=== PATIENT | male | born 1995 | race Caucasian/White ===

== ENCOUNTER 2021-08-02 14:32 | Outpatient (REF) | payer BC, SELFPAY ==
[2021-08-02 15:24] LABS: Influenza A PCR NEGATIVE (Negative); Influenza B PCR NEGATIVE (Negative); Resp Syncy Virus RNA Qual PCR NEGATIVE (Negative); SARS COV2 PCR INHOUSE NEGATIVE (Negative)
== END 2021-08-02 14:33 | disposition home or self-care (01) ==
LOC: HO.LNP 14:32
PROVIDERS: Visit Provider Internal Medicine
DX: Z20.822 Contact with and (suspected) exposure to COVID-19 (principal); H92.02 Otalgia, left ear; R09.82 Postnasal drip; R68.83 Chills (without fever); R51.9 Headache, unspecified
CPT/HCPCS: 0241U

== ENCOUNTER 2023-05-16 09:26 | Outpatient (AMB) | payer OTHER, SELFPAY ==
--- NOTE | 2023-05-16 09:33 | A.OFFVIS_ITS ---
Intake Intake Visit Reasons: Chronic prostatitis Intake Note: NEW Patient presents today to established treatment for Chronic Prostatitis: Meds- None Allergies to Antibiotic- No Known Allergies Blood Thinner- None Family History of Prostate Cancer Building Services Technician Required: No Accompanied by: Self / Same As Patient Allergies No Known Allergies Allergy (Verified 05/16/23 09:48) HPI HPI Comments History of Present Illness Details Isai is a 27 male who is here for evaluation with a history of prostatitis. He states in the past he had symptoms of blood in his sperm and was evaluated by Urology. Over the last 2-3 months he has had discomfort with urination and urgency. He states that his primary evaluated his urine it was negative for chlamydia and gonorrhea but positive for mycoplasma genitalium and he completed a course of doxycycline and moxifloxacin. He states that his partner was also diagnosed treated for the same bacteria. The patient states he has 1 partner currently, denies anal intercourse giving or receiving. He complains of some itching in the anal area. He has a family history of father being diagnosed with prostate cancer, he states about the age of 50 and paternal grandfather also being diagnosed with prostate cancer. He has a younger brother. Review of labs sent to my attention PSA was done on 04/18/2023 was normal at 0.86 ng/mL Examination-prostate is tender to palpation. Urinalysis 1+ blood, Leukocytes negative. 05/16/2023--PLAN: Continue doxycycline 100 mg twice a day for 10 days. Diflucan take 1 tab today and repeat at the end of antibiotic course The patient has an appointment with PCP to re check urine for mycoplasma bacteria Ultrasound retroperitoneum follow-up in 8 weeks [facility] Surgical History (Updated 05/16/23 @ 09:49 by SUYAPA Palafox) Hx of tonsillectomy Family History (Updated 05/16/23 @ 09:49 by SUYAPA Palafox) Father No problems noted. Mother No problems noted. Social History (Updated 05/16/23 @ 09:49 by SUYAPA Palafox) Alcohol intake: current Alcohol intake frequency: holidays/special occasions only Patient Tobacco Use Status: Never used Tobacco Review of Systems Const All systems reviewed & are unremarkable except as noted in HPI and below Reports no additional complaints Eyes Reports no additional complaints ENT Reports no additional complaints Card Denies dyspnea Resp Denies cough and Denies dyspnea GI Reports no additional complaints Musc Reports no additional complaints Skin/Breast Denies rash and Denies unusual bruising Neuro Reports no additional complaints Psych Reports no additional complaints Endo Reports no additional complaints Enrique/Lymph Reports no additional complaints Aller/Immun Reports no additional complaints Physical Exam Const General: healthy appearing, no acute distress and well developed Orientation/consciousness: patient oriented x3 HEENT Head: Yes normocephalic and Yes atraumatic Eyes Conjunctivae: conjunctivae normal Neck Neck: Yes normal visual inspection Chest Chest palpation & inspection: normal inspection of the chest Resp Effort & Inspection: normal respiratory effort Cardio Rate: regular rate GI Inspection: Yes normal to inspection Palpation (GI): Soft to palpation Other: Prostate Exam: Tender to palpation non boggy Penis: normal penis and circumcised Scrotum: scrotum normal Testes: Testes normal Skin General skin exam: no rashes or lesions noted Neuro General: patient oriented x3 Extrem General: No pedal edema Psych Appearance: grossly normal Affect: normal affect Results AMB Urinalysis, Automated UA Leukoctes 0 Solis/uL Last Edit by SUYAPA Palafox on 05/16/23 10:18 UA Nitrite Negative Last Edit by SUYAPA Palafox on 05/16/23 10:18 UA Urobilinogen 0.2 mg/dL Last Edit by SUYAPA Palafox on 05/16/23 10:1 8 UA Protein 0 mg/dL Last Edit by SUYAPA Palafox on 05/16/23 10:18 UA pH 6.0 Last Edit by SUYAPA Palafox on 05/16/23 10:18 UA Blood 25 Crescencio/uL Last Edit by SUYAPA Palafox on 05/16/23 10:18 1+ Jeancarlos Aaron 05/16/23 10:18 UA Specific [place] 1.015 Last Edit by SUYAPA Palafox on 05/16/23 10: 18 UA Ketone Negative Last Edit by SUYAPA Palafox on 05/16/23 10:18 UA Bilirubin 0 mg/dL Last Edit by SUYAPA Palafox on 05/16/23 10:18 UA Glucose 0 mg/dL Last Edit by SUYAPA Palafox on 05/16/23 10:18 Results Reviewed Results Reviewed: Laboratory Last Values Urine pH (Auto) 6.0 05/16/23 10:17 Specific [place] (Auto) 1.015 05/16/23 10:17 Urine Protein (Auto) 0 mg/dL 05/16/23 10:17 Glucose (UA)(Auto) 0 mg/dL 05/16/23 10:17 Urine Ketones (Auto) Negative 05/16/23 10:17 Urine Blood (Auto) 25 Crescencio/uL 05/16/23 10:17 Urine Nitrite (Auto) Negative 05/16/23 10:17 Urine Bilirubin (Auto) 0 mg/dL 05/16/23 10:17 Urine Urobilinogen (Auto) 0.2 mg/dL 05/16/23 10:17 Leukocyte Esterase (Auto) 0 Solis/uL 05/16/23 10:17 Assessment & Plan Assessment & Plan (1) Urinary frequency: Code(s): R35.0 - Frequency of micturition (2) Prostatitis: Code(s): N41.9 - Inflammatory disease of prostate, unspecified (3) Microscopic hematuria: Code(s): R31.29 - Other microscopic hematuria Plan Continue doxycycline 100 mg twice a day for 10 days. Diflucan take 1 tab today and repeat at the end of antibiotic course The patient has an appointment with PCP to re check urine for mycoplasma bacteria Ultrasound retroperitoneum follow-up in 8 weeks Orders: Orders AMB Urinalysis Automated Today Z13.9 - Encounter for screening, unspecified US retroperitoneal comp Today N41.9 - Inflammatory disease of prostate, unspecified, R31.29 - Other microscopic hematuria, R35.0 - Frequency of micturition Medications: New fluconazole take first dose now, repeat at the end of antibiotics 150 mg PO DAILY 2 tabs 0RF doxycycline hyclate 100 mg PO BID 20 tabs 0RF 10 days Patient Instructions: The patient had an opportunity to ask questions regarding treatment plan. All questions were answered. Laboratory studies and physical exam results were discussed and reviewed in detail. No major barriers to understanding were identified. The patient expressed understanding and agreement with the above treatment plan. The patient is aware they should contact our office by phone for worsening of their current condition or the appearance of new symptoms. Compliance is encouraged with any medications and followup testing that is ordered. It is a privilege to be allowed the opportunity to participate in the urologic care of your patient. If you have any questions or concerns regarding treatment for the above conditions please do not hesitate to contact me. The office telephone contact is [phone]. This note is constructed in part using voice recognition software. While every effort has been made to ensure accuracy booth cleaner errors may have been included. Yours sincerely, Marcus Luu MD Coding Level of Care Code New Pt Level 4 (35337) Diagnoses Urinary frequency R35.0 Prostatitis N41.9 Microscopic hematuria R31.29
== END 2023-05-16 10:29 | disposition home or self-care (01) ==
PROVIDERS: Visit Provider Urology
DX: R35.0 Frequency of micturition (principal); N41.9 Inflammatory disease of prostate, unspecified; R31.29 Other microscopic hematuria; Z13.9 Encounter for screening, unspecified
CPT/HCPCS: 99204

== ENCOUNTER → 2023-05-16 09:26 | Outpatient (BNVA) | payer OTHER, SELFPAY | PROVIDERS: Visit Provider Urology | DX: N41.9 Inflammatory disease of prostate, unspecified (principal); R31.29 Other microscopic hematuria; R35.0 Frequency of micturition | CPT/HCPCS: 81003 ==

== ENCOUNTER 2023-07-03 15:56 | Outpatient (REF) | payer OTHER, SELFPAY ==
--- NOTE | ~2023-07-03 | US_ITS ---
EXAMINATION: US RETROPERITONEAL LIMITED (RENAL ONLY) CLINICAL INFORMATION: Inflammatory disease of prostate, unspecified. Epic Ambulatory Analysts states that patient arrived with the bladder not full and therefore has rescheduled to return on July 08, 2023 for dedicated imaging of the bladder. COMPARISON: None available. TECHNIQUE: Real-time imaging of the kidneys. FINDINGS: RIGHT KIDNEY: 11.1 x 5.8 x 5.4 cm (SAG x AP x TRV). No hydronephrosis. No renal calculi. Renal cortical thickness is normal. Limited visualization. LEFT KIDNEY: 10.3 x 5.9 x 5.5 cm (SAG x AP x TRV). No hydronephrosis. No renal calculi. Renal cortical thickness is normal. Limited visualization. . ADDITIONAL FINDINGS: Prostate volume of approximately 21.1 mL, although visualization limited due to poor distention of the bladder US/US renal BI IMPRESSION: 1. No hydronephrosis. No renal calculi. Renal cortical thickness is normal. Limited visualization. 2. Prostate volume of approximately 21.1 mL, although visualization limited due to poor distention of the bladder. Date
== END 2023-07-03 15:57 | disposition home or self-care (01) ==
LOC: HO.US 15:56
PROVIDERS: Visit Provider Urology
DX: N41.9 Inflammatory disease of prostate, unspecified (principal); R35.0 Frequency of micturition; R31.29 Other microscopic hematuria
CPT/HCPCS: 76775

== ENCOUNTER 2023-07-08 13:47 | Outpatient (REF) | payer OTHER, SELFPAY ==
--- NOTE | ~2023-07-08 | US_ITS ---
EXAMINATION: US PELVIS LIMITED (BLADDER) CLINICAL INFORMATION: Frequency, prostatitis. COMPARISON: Renal ultrasound 07/03/2023. TECHNIQUE: Real-time imaging of the bladder. FINDINGS: BLADDER: Well distended and normal. Bilateral ureteral jets are demonstrated. Prevoid bladder volume is 366 mL. Postvoid bladder volume is 14 mL. The prostate volume is 21.6 mL. US/US bladder IMPRESSION: Unremarkable bladder ultrasound.
== END 2023-07-08 13:48 | disposition home or self-care (01) ==
LOC: HO.US 13:47
PROVIDERS: Visit Provider Urology
DX: R31.29 Other microscopic hematuria (principal); R35.0 Frequency of micturition; N41.9 Inflammatory disease of prostate, unspecified
CPT/HCPCS: 76857

== ENCOUNTER 2023-07-14 09:29 | Outpatient (AMB) | payer OTHER, SELFPAY ==
--- NOTE | 2023-07-14 09:30 | A.OFFVIS_ITS ---
Intake Visit Reasons: 8w/US Intake Note: Patient presents today for a follow-up & US Results: Meds- None Allergies to Antibiotic- No Known Allergies Blood Thinner- None Offset Printing Operator Required: No Accompanied by: Self / Same As Patient Allergies No Known Allergies Allergy (Verified 05/16/23 09:48) Medication List - Last Reconciled 07/14/23 by Marcus Luu MD famotidine 20 mg PO BID HPI Comments Details: 07/14/2023--Isai is here for follow-up. He states that his urinary stream has improved. He does have occasional dribbling at the end of urination. He states that he has pain at the base of his penis after having an erection. The pain resolves after several minutes. I have discussed that he can try taking Tylenol prior to sexual activity. I have reviewed ultrasound of kidneys and bladder and prostate are within normal limits. Urinalysis today no signs of infection. Review of chart: 05/16/2023-- Isai is a 27 male who is here for evaluation with a history of prostatitis. He states in the past he had symptoms of blood in his sperm and was evaluated by Urology. Over the last 2-3 months he has had discomfort with urination and urgency. He states that his primary evaluated his urine it was negative for chlamydia and gonorrhea but positive for mycoplasma genitalium and he completed a course of doxycycline and moxifloxacin. He states that his partner was also diagnosed treated for the same bacteria. The patient states he has 1 partner currently, denies anal intercourse giving or receiving. He complains of some itching in the anal area. He has a family history of father being diagnosed with prostate cancer, he states about the age of 50 and paternal grandfather also being diagnosed with prostate cancer. He has a younger brother. Review of labs sent to my attention PSA was done on 04/18/2023 was normal at 0.86 ng/mL Examination-prostate is tender to palpation. Urinalysis 1+ blood, Leukocytes negative. Continue doxycycline 100 mg twice a day for 10 days. Diflucan take 1 tab today and repeat at the end of antibiotic course The patient has an appointment with PCP to re check urine for mycoplasma bacteria Ultrasound retroperitoneum follow-up in 8 weeks 07/14/2023--PLAN: Follow-up in 1 year [facility] Surgical History Hx of tonsillectomy Family History Father No problems noted. Mother No problems noted. Social History Alcohol intake: current Alcohol intake frequency: holidays/special occasions only Patient Tobacco Use Status: Never used Tobacco Review of Systems Const All systems reviewed & are unremarkable except as noted in HPI and below Reports no additional complaints Eyes Reports no additional complaints ENT Reports no additional complaints Card Reports no additional complaints Resp Reports no additional complaints GI Reports no additional complaints Reports as per HPI Musc Reports no additional complaints Skin/Breast Reports system reviewed and no additional complaints, except as documented Neuro Reports no additional complaints Psych Reports no additional complaints Endo Reports no additional complaints Enrique/Lymph Reports no additional complaints Aller/Immun Reports no additional complaints Results AMB Urinalysis, Automated UA Leukoctes 0 Solis/uL Last Edit by SUYAPA Palafox on 07/14/23 10:14 UA Nitrite Negative Last Edit by SUYAPA Palafox on 07/14/23 10:14 UA Urobilinogen 0.2 mg/dL Last Edit by SUYAPA Palafox on 07/14/23 10:1 4 UA Protein 15 mg/dL Last Edit by SUYAPA Palafox on 07/14/23 10:14 UA pH 7.0 Last Edit by SUYAPA Palafox on 07/14/23 10:14 UA Blood 25 Crescencio/uL Last Edit by SUYAPA Palafox on 07/14/23 10:14 UA Specific [place] 1.015 Last Edit by SUYAPA Palafox on 07/14/23 10: 14 UA Ketone Negative Last Edit by SUYAPA Palafox on 07/14/23 10:14 UA Bilirubin 0 mg/dL Last Edit by SUYAPA Palafox on 07/14/23 10:14 UA Glucose 0 mg/dL Last Edit by SUYAPA Palafox on 07/14/23 10:14 Results Reviewed Results Reviewed: Laboratory Last Values Urine pH (Auto) 7.0 07/14/23 10:12 Specific [place] (Auto) 1.015 07/14/23 10:12 Urine Protein (Auto) 15 mg/dL 07/14/23 10:12 Glucose (UA)(Auto) 0 mg/dL 07/14/23 10:12 Urine Ketones (Auto) Negative 07/14/23 10:12 Urine Blood (Auto) 25 Crescencio/uL 07/14/23 10:12 Urine Nitrite (Auto) Negative 07/14/23 10:12 Urine Bilirubin (Auto) 0 mg/dL 07/14/23 10:12 Urine Urobilinogen (Auto) 0.2 mg/dL 07/14/23 10:12 Leukocyte Esterase (Auto) 0 Solis/uL 07/14/23 10:12 Date of Service: 07/03/23 EXAMINATION: US RETROPERITONEAL LIMITED (RENAL ONLY) CLINICAL INFORMATION: Inflammatory disease of prostate, unspecified. Synthetic Department Supervisor states that patient arrived with the bladder not full and therefore has rescheduled to return on July 08, 2023 for dedicated imaging of the bladder. COMPARISON: None available. TECHNIQUE: Real-time imaging of the kidneys. FINDINGS: RIGHT KIDNEY: 11.1 x 5.8 x 5.4 cm (SAG x AP x TRV). No hydronephrosis. No renal calculi. Renal cortical thickness is normal. Limited visualization. LEFT KIDNEY: 10.3 x 5.9 x 5.5 cm (SAG x AP x TRV). No hydronephrosis. No renal calculi. Renal cortical thickness is normal. Limited visualization. . ADDITIONAL FINDINGS: Prostate volume of approximately 21.1 mL, although visualization limited due to poor distention of the bladder IMPRESSION: 1. No hydronephrosis. No renal calculi. Renal cortical thickness is normal. Limited visualization. 2. Prostate volume of approximately 21.1 mL, although visualization limited due to poor distention of the bladder. Date of Service: 07/08/23 US PELVIS LIMITED (BLADDER) CLINICAL INFORMATION: Frequency, prostatitis. COMPARISON: Renal ultrasound 07/03/2023. TECHNIQUE: Real-time imaging of the bladder. FINDINGS: BLADDER: Well distended and normal. Bilateral ureteral jets are demonstrated. Prevoid bladder volume is 366 mL. Postvoid bladder volume is 14 mL. The prostate volume is 21.6 mL. IMPRESSION: Unremarkable bladder ultrasound. Assessment & Plan Assessment & Plan (1) Urinary frequency: Code(s): R35.0 - Frequency of micturition Category: Medical (2) Prostatitis: Code(s): N41.9 - Inflammatory disease of prostate, unspecified Category: Medical (3) Microscopic hematuria: Code(s): R31.29 - Other microscopic hematuria Category: Medical (4) Family history of prostate cancer: Code(s): Z80.42 - Family history of malignant neoplasm of prostate Category: Medical Plan Follow-up in 1 year Orders: Orders AMB Urinalysis Automated Today Z13.9 - Encounter for screening, unspecified Patient Instructions: The patient had an opportunity to ask questions regarding treatment plan. The patient expressed understanding and agreement with the above treatment plan. The patient is aware they should contact our office by phone for worsening of their current condition or the appearance of new symptoms. Compliance is encouraged with any medications and followup testing that is ordered. It is a privilege to be allowed the opportunity to participate in the urologic care of your patient. If you have any questions or concerns regarding treatment for the above conditions please do not hesitate to contact me. The office telephone contact is [phone]. This note is constructed in part using voice recognition software. While every effort has been made to ensure accuracy campground caretaker errors may have been included. Yours sincerely, Marcus Luu MD Coding Level of Care Code Est Pt Level 4 (17961) Diagnoses Urinary frequency R35.0 Prostatitis N41.9 Microscopic hematuria R31.29 Family history of prostate cancer Z80.42
== END 2023-07-14 10:31 | disposition home or self-care (01) ==
PROVIDERS: Visit Provider Urology
DX: R35.0 Frequency of micturition (principal); N41.9 Inflammatory disease of prostate, unspecified; R31.29 Other microscopic hematuria; Z80.42 Family history of malignant neoplasm of prostate; Z13.9 Encounter for screening, unspecified
CPT/HCPCS: 99214

== ENCOUNTER → 2023-07-14 09:29 | Outpatient (BNVA) | payer OTHER, SELFPAY | PROVIDERS: Visit Provider Urology | DX: R35.0 Frequency of micturition (principal); N41.9 Inflammatory disease of prostate, unspecified; R31.29 Other microscopic hematuria; Z80.42 Family history of malignant neoplasm of prostate | CPT/HCPCS: 81003 ==

== ENCOUNTER 2023-08-04 01:01 | Emergency (ER) | payer OTHER, SELFPAY ==
[2023-08-04 01:29] VITALS: BP 105/69; PULSE 58; RESP 18; TEMP 36.5; O2SAT 99; BMI 22.8
== END 2023-08-04 05:29 | disposition left against medical advice (07) ==
LOC: HO.ED 05:25
PROVIDERS: Emergency Provider Emergency Medicine
DX: H57.9 Unspecified disorder of eye and adnexa (principal)
CPT/HCPCS: 99281

== ENCOUNTER 2024-07-23 09:31 | Outpatient (REF) | payer OTHER, SELFPAY ==
--- OUTSIDE RECORDS SUMMARY | 2024-07-23 13:48 | XMS_ITS | Clinical Summary ---
Author Organization [facility] Address [address] [place] [address] Care Team Providers Care Field Ring Assembler Name Role Phone Smith Pryor MD Primary Care Provider [phone] Smith Pryor MD Unavailable [phone] Allergies Active Allergy Reactions Criticality Noted Date [...] endoscopy. Hematospermia 11/04/2018 Overview (04/13/2023): Impression - 75Esr4940: No focal findings on exam - follow up urinalysis and scrotal ultrasound - vast majority of cause are benign however would recommend urology evaluation for persistent symptoms. Impression - 59Fuw3001: Interval resolution and ultrasound negative - continue to recommend neurologist evaluation and patient will pursue. ADHD 01/08/2018 Overview (04/13/2023): Transitioned From: ADD (attention deficit disorder) Impression - 98Nio9684: No improvement after initial trial of extended-release Adderall 5 mg - will transition to immediate release to 20 milligrams - again discussed side effects and patient call/return office should - follow up with physical exam 04/28 or more soon p.r.n. Impression - 75Fem9060: Patient reports stability on Adderall 5 to 10 milligrams - reports improved jittery like sensation on lower dose-continue current therapy and follow up in 3 months with physical exam - [facility] Rx web site reviewed. Screening for STD (sexually transmitted disease) 08/29/2017 Overview (04/13/2023): Transitioned From: Exposure to STD Pain with ejaculation 08/29/2017 Overview (04/13/2023): Impression - 07Ecx9317: No discharge to culture tonight. Will check urine and blood for STD screening. Discussed safe sex, both physically and emotionally, importance of consistent and corrent condom usage, testing with each new partner. He will abstain from sex until results are in. Call with questions/concerns. Impression - 98Kjh4379: Check blood work and urine studies as ordered - reinforced safe sexual practices. Depression, major, single episode, mild 06/04/19 18 Overview (04/13/2023): Impression - 73Pom9005: Interval improvement on escitalopram 10 and weekly talk therapy - increase from 10 to 20 milligrams follow up in 3 months or more soon p.r.n. Impression - 70Ajo5821: Stable on Lexapro 10-continue current therapy-check blood [...] reflux esophagitis 04/16/2016 Overview (04/13/2023): Impression - 09Tqp3390: Asymptomatic incidentally noted on upper endoscopy 2015 - discussed anti-reflux diet and small more frequent meals Impression - 28Uas6159: Stable - focus on anti reflux diet and elevation head of bed; Description: EGD - reflux esophagitis Irritable bowel disease 04/16/2016 Overview (04/13/2023): Impression - 13Oyp2874: Diarrhea predominant - slight improvement with Xifaxin (pt believes this is the correct medication) and low FODMAP diet - patient is seeking a 2nd opinion and referral to Dr. Jasmine doe - discussed Imodium 1 tablet after each loose bowel movement to a max of 4 tab per day Impression - 20Tmx3992: Interval flare in the setting of worsening anxiety- discussed continued lactose and gluten free diet hopeful with improvement with SSRI therapy-follow up in 6 weeks; Description: EGD/colonoscopy 02/2016 - reflux esophagitis, external hemorrhoids, no evidence of inflammatory bowel disease Weight loss, unintentional 04/16/2016 Overview (04/13/2023): Impression - 57Icj5317: Will obtain records from [facility] including blood work and upper/lower endoscopy - [...] Anxiety disorder 04/16/2016 Overview (04/13/2023): Impression - 13Lut0822: Stable on talk therapy alone - discussed crossover with generalized anxiety and diarrhea predominant IBS - discussed SSRI therapy in the setting and the patient will like to investigate further with secondary GI opinion as well as his therapist Impression - 70Cgj2141: Stable and interval improvement on Lexapro 10 [...] 01/01/2019 6:54 PM EDT Testing Performed at: [facility], [address] [place] [address], , Electric Meter Installer Helper: Madelin Shi MD CL#[id number] 8:02AM by Smith Pryor: ??Labs are all within normal limits- infectious screening is negative. us Smith Pryor MD LABORATORY Final Result Performing Organization Address [facility] [place]/[facility] Co de Phone Number PHCT CONVERSIONS * [...] PM EDT FASTING: YES Testing Performed at: [facility], [address] [place] [address], , Electric Meter Installer Helper: Madelin Shi MD CL#[id number] 8:02AM by Smith Pryor: ??Labs are all within normal limits- infectious screening is negative. us Smith Pryor MD LABORATORY Final Result Performing Organization Address [facility] [place]/[facility] Co de Phone Number PHCT CONVERSIONS * [...] Recently Relevant to Health Maintenance Care Teams Field Ring Assembler Relationship Specialty Start Date End Date Smith Pryor MD [address] [place] [address] [phone] PCP - General 10/14/22 Smith Pryor MD [address] [place] [phone] PCP - Backup PCP Internal Medicine 04/09/23
--- OUTSIDE RECORDS SUMMARY | 2024-07-23 13:48 | XMS_ITS | Clinical Summary ---
Author Organization [address] Address [address] [place] [address] Care Team Providers Care Latex Ribbon Machine Operator Name Role Phone Pcp, Does Not Have [...] patient's age to complete this topic Insurance [facility] MEDICAID [place] [facility] [place]ICAID [place] * Guarantor: Dino Isai Account Type Relation to Patient Date of Phone Billing Address Personal/Family Self [address] [place] [address] [facility] [employer] MEDICAID [place] Care Teams Latex Ribbon Machine Operator Relationship Specialty Start Date End Date Pcp, Does Not Have A PCP - General 12/15/22
[2024-07-23 16:45] LABS: Urine Cytology See Pathology rpt
== END 2024-07-23 09:32 | disposition home or self-care (01) ==
LOC: HO.LAB 09:31
PROVIDERS: Visit Provider Urology
DX: N41.1 Chronic prostatitis (principal); R35.0 Frequency of micturition; R31.29 Other microscopic hematuria; Z80.42 Family history of malignant neoplasm of prostate
CPT/HCPCS: 51798; 81003; 87086; 88112

== ENCOUNTER 2024-07-23 09:31 | Outpatient (AMB) | payer OTHER, SELFPAY ==
--- NOTE | 2024-07-23 09:36 | A.OFFVIS_ITS ---
Intake Visit Reasons: 1y follow up Intake Note: Patient presents today for a 1 year follow-up Urology Meds- None Allergies to Antibiotic- No Known Allergies Blood Thinner- None PVR:0ml Grinder Operator Tool Required: No Accompanied by: Self / Same As Patient Allergies No Known Allergies Allergy (Verified 07/23/24 09:36) HPI Comments Details: I have just noticed that like I am getting like for Moe urination so sitting on 3 only drank like 15 20 oz of water or before like before this sample sometimes also get like itchiness in my urethra and then came like having like I do not know where it is hard to pinpoint 07/14/2023--Isai is here for follow-up. He states that his urinary stream has improved. He does have occasional dribbling at the end of urination. He states that he has pain at the base of his penis after having an erection. The pain resolves after several minutes. I have discussed that he can try taking Tylenol prior to sexual activity. I have reviewed ultrasound of kidneys and bladder and prostate are within normal limits. Urinalysis today no signs of infection. Isai delay good here since you were here any issues going on 05/16/2023-- Isai is a 27 male who is here for evaluation with a history of prostatitis. He states in the past he had symptoms of blood in his sperm and was evaluated by Urology. Over the last 2-3 months he has had discomfort with urination and urgency. He states that his primary evaluated his urine it was negative for chlamydia and gonorrhea but positive for mycoplasma genitalium and he completed a course of doxycycline and moxifloxacin. He states that his partner was also diagnosed treated for the same bacteria. The patient states he has 1 partner currently, denies anal intercourse giving or receiving. He complains of some itching in the anal area. He has a family history of father being diagnosed with prostate cancer, he states about the age of 50 and paternal grandfather also being diagnosed with prostate cancer. He has a younger brother. Review of labs sent to my attention PSA was done on 04/18/2023 was normal at 0.86 ng/mL Examination-prostate is tender to palpation. Urinalysis 1+ blood, Leukocytes negative. Continue doxycycline 100 mg twice a day for 10 days. Diflucan take 1 tab today and repeat at the end of antibiotic course The patient has an appointment with PCP to re check urine for mycoplasma bacteria Ultrasound retroperitoneum follow-up in 8 weeks 07/14/2023--PLAN: Follow-up in 1 year Pressure is a more of a pinching slight last he has okay so Konstantin reviewing you know what we had talked about before [facility] Surgical History Hx of tonsillectomy Family History Father No problems noted. Mother No problems noted. Social History Alcohol intake: current Alcohol intake frequency: holidays/special occasions only Patient Tobacco Use Status: Never used Tobacco Office Procedures Post Void Residual Post Residual Void Post Void Residual (PVR): 0 [id number]-[id number] Void Residual by ultrasound Results AMB Urinalysis, Automated UA Leukoctes 0 Solis/uL Last Edit by Elizabeth Mora on 07/23/24 15:21 UA Nitrite Negative Last Edit by Elizabeth Mora on 07/23/24 15:21 UA Urobilinogen 3.5 mg/dL Last Edit by Elizabeth Mora on 07/23/24 15:21 UA Protein 0 mg/dL Last Edit by Elizabeth Mora on 07/23/24 15:21 UA pH 6.0 Last Edit by Elizabeth Mora on 07/23/24 15:21 UA Blood 25 Crescencio/uL Last Edit by Elizabeth Mora on 07/23/24 15:21 UA Specific [place] 1.015 Last Edit by Elizabeth Mora on 07/23/24 15:21 UA Ketone Negative Last Edit by Elizabeth Mora on 07/23/24 15:21 UA Bilirubin 0 mg/dL Last Edit by Elizabeth Mora on 07/23/24 15:21 UA Glucose 0 mg/dL Last Edit by Elizabeth Mora on 07/23/24 15:21 Assessment & Plan Assessment & Plan Orders: Orders Urine Cytology Today N39.0 - Urinary tract infection, site not specified Urine Culture Today N39.0 - Urinary tract infection, site not specified AMB Urinalysis Automated Today Z13.9 - Encounter for screening, unspecified Coding CPT Codes Post Residual Void - PVR CPT Code: [id number] Void Residual by ultrasound ([id number])
--- OUTSIDE RECORDS SUMMARY | 2024-07-23 09:47 | XMS_ITS | Clinical Summary ---
Author Organization [address] Address [address] [place] [address] Care Team Providers Care Field Assessor Name Role Phone Pcp, Does Not Have A Primary Care Provider Unava ilable Medications No known medications Social History Tobacco Use Types Packs/Day Years Used Date Smoking Tobacco: Never Assessed Sex and Gender Information Value Date Recorded Sex Assigned at Not on file Legal Sex Male 8:12 AM EST Gender Identity Not on file Sexual Orientation Not on file Last Filed Vital Signs Vital Sign Reading Time Taken Comments Blood Pressure 119/66 12/15/2022 9:50 AM EDT Pulse 80 12/15/2022 9:50 AM EDT Temperature 36.8 ??C (98.2 ??F) 12/15/2022 9:50 AM ED T Respiratory Rate 16 12/15/2022 9:50 AM EDT Oxygen Saturation 100% 12/15/2022 9:50 AM EDT Inhaled Oxygen Concentration - - Weight - - Height - - Body Mass Index - - Plan of Treatment Health Maintenance Due Date Last Done Comments HIV screening 11/01/2008 Hepatitis C screening 11/01/2013 Covid-19 vaccine series ( season) 2023 08/09/2021 Influenza vaccine 11/08/2024 01/26/2019, 01/01/2018, 02/18/2017 Tetanus adult (Td q 10,TDAP once) 08/01/2031 07/31/2021 RSV Immunization (1 - 1-dose 75+ series) 11/01/2070 Meningococcal Vaccine Aged Out No dev cinda eligible based on patient's age to complete this topic Pneumococcal Vaccine (2 - 49 years) Aged Out No longer eligible b ased on patient's age to complete this topic Insurance [facility] [place] [facility] [place] * Guarantor: Dino Isai Account Type Relation to Patient Date of Phone Billing Address Personal/Family Self [address] [place] [address] [facility] [employer] [place]ICAID [place] Care Teams Field Assessor Relationship Specialty Start Date End Date Pcp, Does Not Have A PCP - General 12/15/22
--- OUTSIDE RECORDS SUMMARY | 2024-07-23 09:47 | XMS_ITS ---
Author Name [facility] Organization Unknown Results Test Name/Text Value Interpretation Date Range Source ALKALINE PHOSPHATASE:CCNC:PT:S ER/PLAS:QN: 73U/L Normal [id number] 40 - 130 [facility] ASPARTATE AMINOTRANSFERASE:CCNC :PT:SER/PLAS:QN:WITH P-5'-P 16U/L Normal [id number] 10 - 50 [facility] ALANINE AMINOTRANSFERASE:CCNC :PT:SER/PLAS:QN:WITH P-5'-P 22U/L Normal [id number] [facility] POTASSIUM:SCNC:PT:SER /PLAS:QN: 4mmol/L Normal [id number] 3.5 - 5.3 [facility] ALKALINE PHOSPHATASE:CCNC:PT:S ER/PLAS:QN: Normal [id number] 40 - 130 [facility] ALANINE AMINOTRANSFERASE:CCNC :PT:SER/PLAS:QN:WITH P-5'-P Normal [id number] 62 [facility] ASPARTATE AMINOTRANSFERASE:CCNC :PT:SER/PLAS:QN:WITH P-5'-P Normal [id number] - 50 [facility] BILIRUBIN:MCNC:PT:SER /PLAS:QN: 0.5mg/dL Normal [id number] 0 - 1.2 [facility] POTASSIUM:SCNC:PT:SER /PLAS:QN: Normal [id number] 3.5 - 5.3 [facility] CREATININE:MCNC:PT:SE R/PLAS:QN: 0.83mg/dL Normal [id number] 0.67 - 1.23 [facility] BICARBONATE:SCNC:PT:S ER/PLAS:QN: 25mmol/L Normal [id number] 22 - 29 [facility] UREA NITROGEN:MCNC:PT:SER/ PLAS:QN: 9mg/dL Normal 6 - 23 [facility] CHLORIDE:SCNC:PT:SER/ PLAS:QN: 101mmol/L Normal 97 - 107 [facility] ANION GAP 3:SCNC:PT:SER/PLAS:QN : 12mmol/L Normal 8 - 16 [facility] GLUCOSE:MCNC:PT:SER/P LAS:QN: 105mg/dL Above high normal 70 - 99 [facility] SODIUM:SCNC:PT:SER/PL :QN: 138mmol/L Normal 135 - 145 [facility] GLOMERULAR FILTRATION RATE/1.73 SQ M.PREDICTED:ARVRAT:PT :SER/PLAS/BLD:QN:CREA TININE-BASED FORMULA (CKD-EPI) 122mL/min/1.73 m2 Normal - [facility] CREATININE RENAL CLEARANCE.PREDICTED:V RAT:PT:SER/PLAS:QN:CO CKCROFT-GAULT FORMULA 127mL/min Normal [facility] BASOPHILS/100 LEUKOCYTES:NFR:PT:BLD :QN:AUTOMATED COUNT 0.5% Normal 0 - 2 [facility] MONOCYTES:NCNC:PT:BLD :QN:AUTOMATED COUNT 0.39x10(9)/L Normal 0 - 1 [facility] EOSINOPHILS:NCNC:PT:B LD:QN:AUTOMATED COUNT 0.24x10(9)/L Normal 0 - 0.5 [facility] MONOCYTES/100 LEUKOCYTES:NFR:PT:BLD :QN:AUTOMATED COUNT 6.1% Normal 4 - 12 [facility] EOSINOPHILS/100 LEUKOCYTES:NFR:PT:BLD :QN:AUTOMATED COUNT 3.8% Normal 0 - 7 [facility] LYMPHOCYTES:NCNC:PT:B LD:QN:AUTOMATED COUNT 1.92x10(9)/L Normal 1 - 4 [facility] NEUTROPHILS/100 LEUKOCYTES:NFR:PT:BLD :QN:AUTOMATED COUNT 59.4% Normal 40 - 75 [facility] NEUTROPHILS:NCNC:PT:B LD:QN:AUTOMATED COUNT 3.77x10(9)/L Normal 2 - 7.5 [facility] LYMPHOCYTES/100 LEUKOCYTES:NFR:PT:BLD :QN:AUTOMATED COUNT 30.2% Normal 20 - 45 [facility] BASOPHILS:NCNC:PT:BLD :QN:AUTOMATED COUNT 0.03x10(9)/L Normal 0 - 0.2 [facility] ERYTHROCYTE MEAN CORPUSCULAR VOLUME:ENTVOL:PT:RBC: QN:AUTOMATED COUNT 85.9fL Normal 80 - 99 [facility] LEUKOCYTES:NCNC:PT:BL D:QN:AUTOMATED COUNT 6.4x10(9)/L Normal 3.5 - 10 [facility] PLATELETS:NCNC:PT:BLD :QN:AUTOMATED COUNT 278x10(9)/L Normal 150 - 400 [facility] HEMATOCRIT:VFR:PT:BLD :QN:AUTOMATED COUNT 43.7% Normal 38 - 50 [facility] HEMOGLOBIN:MCNC:PT:BL D:QN: 15.7g/dL Normal 13.5 - 17 [facility] ERYTHROCYTE MEAN CORPUSCULAR HEMOGLOBIN CONCENTRATION:MCNC:PT :RBC:QN:AUTOMATED COUNT 35.9g/dL Normal 31 - 36 [facility] ERYTHROCYTE MEAN CORPUSCULAR HEMOGLOBIN:ENTMASS:PT :RBC:QN:AUTOMATED COUNT 30.8pg Normal 25 - 34 [facility] ERYTHROCYTE DISTRIBUTION WIDTH:RATIO:PT:RBC:QN :AUTOMATED COUNT 13.1% Normal 11.5 - 15 [facility] ERYTHROCYTES:NCNC:PT: BLD:QN:AUTOMATED COUNT 5.09x10(12)/L Normal 4.3 - 5.7 [facility] PLATELET MEAN VOLUME:ENTVOL:PT:BLD: QN:AUTOMATED COUNT 9.7fL Normal 9.3 - 13 [facility] ERYTHROCYTE DISTRIBUTION WIDTH:ENTVOL:PT:RBC:Q N:AUTOMATED COUNT 39.9fL Normal [id number] 35 - 47 [facility] History of Medication Use Medication Directions Dispensed Refills Start Date End Date Stat us Protonix 40 mg oral delayed release tablet 1 tab, Oral, Daily, # 30 tab, 0 Refill(s), Pharmacy: [facility]/pharmacy #[id number], 172, cm, 03/03/24 7:56:00 EST, Height/Length Measured, 69, kg, 03/03/24 7:56:00 EST, Weight Dosing 03/03/2024 Ordered Problems Problem Status Onset Date Problem Type Date of Resoluti on Source Diarrhea (finding) active ProblemAct [facility] Irritable colon (disorder) active ProblemAct [facility] Encounters Encounter Type Encounter Reason Primary Diagnosis Location Date Emergency ABD PAIN NAUSEA [facility] 03/03/2024 Emergency Alcohol abuse, unspecified Alcohol abuse, unspecified [facility] 12/15/2022 Care Team Organization Name Specialty Phone Email Start Date End Da te [facility] 03/05/2024 [facility] 03/03/2024 [facility] 2023 [facility] 12/15/2022 10/27/2023 [facility] 12/15/2022 12/15/2022 [facility] 01/09/2022
--- OUTSIDE RECORDS SUMMARY | 2024-07-23 09:47 | XMS_ITS | Clinical Summary ---
Author Organization [facility] Address [address] [place] [address] Care Team Providers Care Superintendent Transmission Name Role Phone Smith Pryor MD Primary Care Provider [phone] Smith Pryor MD Unavailable [phone] Allergies Active Allergy Reactions Criticality Noted Date Comments Paroxetine 04/28/2017 Reactions: Nausea Medications Escitalopram Oxalate (LEXAPRO) 10 MG tablet TAKE 1 TABLET BY MOUTH EVERY DAY 90 1 05/30/2017 Active Vitamin D3 (VITAMIN D-3) 50 MCG (2000 UT) tablet Take 1 tablet daily 90 tablet 0 06/03/2017 Active Amphetamine-Dext roamphetamine (ADDERALL) 20 MG tablet Take 1 tablet daily 30 tablet 0 01/19/2018 Active Vitamin D (VITAMIN D-3) 50 MCG (2000 UT) tablet TAKE 1 TABLET BY MOUTH EVERY DAY 90 0 05/11/2019 Active Active Problems Problem Noted Date Diagnosed Date PND (paroxysmal nocturnal dyspnea) 01/26/2019 Overview (04/13/2023): Impression - 26Jan2019: Start Flonase - recommend humidifier for bedroom. Hoarseness of voice 01/26/2019 Overview (04/13/2023): Impression - 26Jan2019: Patient has noticed hoarseness of voice and fatigability over the past several months - discussed supportive care with fluid hydration, humidified air in the bedroom, treatment of postnasal drip with Flonase daily and cessation of all smoking including marijuana and tobacco - patient is requesting ENT evaluation for nasal endoscopy. Hematospermia 11/04/2018 Overview (04/13/2023): Impression - [id number]: No focal findings on exam - follow up urinalysis and scrotal ultrasound - vast majority of cause are benign however would recommend urology evaluation for persistent symptoms. Impression - 34Ppa9355: Interval resolution and ultrasound negative - continue to recommend neurologist evaluation and patient will pursue. ADHD 01/08/2018 Overview (04/13/2023): Transitioned From: ADD (attention deficit disorder) Impression - 16Cwc0180: No improvement after initial trial of extended-release Adderall 5 mg - will transition to immediate release to 20 milligrams - again discussed side effects and patient call/return office should - follow up with physical exam 04/28 or more soon p.r.n. Impression - 14Vvp9017: Patient reports stability on Adderall 5 to 10 milligrams - reports improved jittery like sensation on lower dose-continue current therapy and follow up in 3 months with physical exam - [facility] Rx web site reviewed. Screening for STD (sexually transmitted disease) 08/29/2017 Overview (04/13/2023): Transitioned From: Exposure to STD Pain with ejaculation 08/29/2017 Overview (04/13/2023): Impression - 95Hpl9047: No discharge to culture tonight. Will check urine and blood for STD screening. Discussed safe sex, both physically and emotionally, importance of consistent and corrent condom usage, testing with each new partner. He will abstain from sex until results are in. Call with questions/concerns. Impression - 63Baj8612: Check blood work and urine studies as ordered - reinforced safe sexual practices. Depression, major, single episode, mild 06/04/19 18 Overview (04/13/2023): Impression - 20Ocq2462: Interval improvement on escitalopram 10 and weekly talk therapy - increase from 10 to 20 milligrams follow up in 3 months or more soon p.r.n. Impression - 11Fhc4065: Stable on Lexapro 10-continue current therapy-check blood work as ordered and follow up with physical exam in 3 months. Vitamin D insufficiency 04/23/2017 Overview (04/13/2023): Impression - 03Jun2017: Asymptomatic - discussed benefits of replacement including fall prevention and bone health - I advised 10 minutes of direct sunlight a day prior to sun screen application and high vitamin-D foods including fortified orange juice and salmon - start 2000 units of vit D3 a day - recheck vitamin-D in 1 year. Chronic reflux esophagitis 04/16/2016 Overview (04/13/2023): Impression - 85Ybd7366: Asymptomatic incidentally noted on upper endoscopy 2015 - discussed anti-reflux diet and small more frequent meals Impression - 56Vao1052: Stable - focus on anti reflux diet and elevation head of bed; Description: EGD - reflux esophagitis Irritable bowel disease 04/16/2016 Overview (04/13/2023): Impression - 01Ski0539: Diarrhea predominant - slight improvement with Xifaxin (pt believes this is the correct medication) and low FODMAP diet - patient is seeking a 2nd opinion and referral to Dr. Jasmine doe - discussed Imodium 1 tablet after each loose bowel movement to a max of 4 tab per day Impression - 20Dhy1377: Interval flare in the setting of worsening anxiety- discussed continued lactose and gluten free diet hopeful with improvement with SSRI therapy-follow up in 6 weeks; Description: EGD/colonoscopy 02/2016 - reflux esophagitis, external hemorrhoids, no evidence of inflammatory bowel disease Weight loss, unintentional 04/16/2016 Overview (04/13/2023): Impression - 24Twn0304: Will obtain records from [facility] including blood work and upper/lower endoscopy - we did discuss 3 well-rounded meals per day in addition to the snacks - will check blood work as ordered - encouraged continuation of low FODMAP diet to assess improvement in bowel habits Impression - 03Jun2017: Blood work unrevealing with 2 pound weight gain over past 6 weeks-continue SSRI therapy - weight check in 3 months Anxiety disorder 04/16/2016 Overview (04/13/2023): Impression - 46Dfy9449: Stable on talk therapy alone - discussed crossover with generalized anxiety and diarrhea predominant IBS - discussed SSRI therapy in the setting and the patient will like to investigate further with secondary GI opinion as well as his therapist Impression - 83Fge7746: Stable and interval improvement on Lexapro 10 - continue current therapy and talk therapy as needed - recommend follow up with physical exam and blood work prior 04/29. Immunizations Name Administration Dates Next Due Influenza,injectable,quad,Prsrv Fr 02/18/2017 Family History Medical History Relation Name Comments Cancer - Prostate Father malignant neoplasm of prostate : Father Inflammatory Bowel Disease Maternal aunt Crohn's disease : Maternal Aunt Depression Maternal grandmother depress ion : Maternal Grandmother Diabetes Maternal grandmother diabete s mellitus : Maternal Grandmother Relation Name Status Comments Father Maternal aunt Maternal grandmother Social History Tobacco Use Types Packs/Day Years Used Date Smoking Tobacco: Never Assessed Comments:Smoking Status:No c urrent tobacco use Sex and Gender Information Value Date Recorded Sex Assigned at Not on file Legal Sex Male 6:09 PM EDT Gender Identity Not on file Sexual Orientation Not on file Last Filed Vital Signs Vital Sign Reading Time Taken Comments Blood Pressure 120/70 01/26/2019 3:31 PM EST RUE/Sitting RUE/Sitting Pulse 66 01/26/2019 3:31 PM EST Temperature 36.9 ??C (98.5 ??F) 01/26/2019 3 :31 PM EST Oral Respiratory Rate 12 11/23/2018 3:29 PM EDT Oxygen Saturation 99% 01/26/2019 3:3 1 PM EST RA Inhaled Oxygen Concentration - - Weight 63.5 kg (139 lb 15.9 oz) 01/26/2019 3:31 PM EST Height 172.7 cm (5' 8 ) 01/26/2019 3:31 PM EST Body Mass Index 21.29 01/26/2019 3:31 PM EST Plan of Treatment Health Maintenance Due Date Last Done Comments DTaP/Tdap/Td (1 - Tdap) 11/01/2013 Hep B (1 of 3 - 19+ 3-dose series) 11/01/2014 COVID-19 Vaccine ( - 2023-2 5 season) 2023 Influenza (#1) 2023 02/18/2017 Zoster (Shingrix) (1 of 2) 11/01/2045 Colonoscopy Discontinued 02/20/2016 EKG Discontinued 04/21/2017, 04/21/2017 Physical Discontinued 04/21/2017, 04/16/2016 Hepatitis C Screening Completed 01/01/2019 LDL Cholesterol Discontinued 01/01/2019, 04/21/2017, 06/06/2016 HPV Vaccine Aged Out No longer eligi ble based on patient's age to complete this topic Hep A Aged Out No longer eligi ble based on patient's age to complete this topic Hib Aged Out No longer eligi ble based on patient's age to complete this topic Meningococcal ACWY Aged Out No longer eligible based on patient's age to complete this topic Pneumococcal Aged Out No longer eligi ble based on patient's age to complete this topic Procedures Procedure Name Priority Date/Time Associated Diagnosis Comments HEPATITIS PANEL, ACUTE W/REFLEX Routine 01/01/2019 10:42 AM EDT LIPID PANEL, PLASMA Routine 01/01/2019 1 0:42 AM EDT EKG 04/21/2017 8:00 AM EST COLONOSCOPY 02/20/2016 12:00 AM EST from Last 3 Months or Most Recently Relevant to Health Maintenance Results * HEPATITIS PANEL, ACUTE W/REFLEX (01/01/2019 10:42 AM EDT) HEPATITIS A IGM NON-REACT ALEXA NON-REACT ALEXA PHCT CONVERSIONS HEPATITIS B CORE ANTIBODY (IGM) NON-REACT ALEXA NON-REACT ALEXA PHCT CONVERSIONS Comment:IgM antibodies to HB c were not detected; does not exclude the possiblity of exposure to HBV. HEPATITIS B SURFACE ANTIGEN NON-REACT ALEXA NON-REACT ALEXA PHCT CONVERSIONS Hepatitis C virus Ab NON-REACT ALEXA NON-REACT ALEXA PHCT CONVERSIONS Hepatitis C virus Ab 0.05 <1.00 PHCT CONVERSIONS Comment:Antibodies to HCV we re not detected. NOTE: This does not entirely exclude the possibility of exposure to HCV since antibody production may lag infection. If there is a high suspicion of HCV infection HCV RNA testing may be of diagnostic value. 01/01/2019 10:4 2 AM EDT Narrative PHCT CONVERSIONS - 01/01/2019 6:54 PM EDT Testing Performed at: [email or web address], [address] [place] [address], , Corporate Communications Specialist: Madelin Shi MD CL#[id number] 8:02AM by Smith Pryor: ??Labs are all within normal limits- infectious screening is negative. us Smith Pryor MD LABORATORY Final Result Performing Organization Address [facility] Co de Phone Number PHCT CONVERSIONS * LIPID PANEL, PLASMA (01/01/2019 10:42 AM EDT) Cholesterol 136 0 - 199 mg/dL PH[facility] CONVERSIONS Triglyceride 42 0 - 150 mg/dL PH[facility] CONVERSIONS VLDL Cholesterol 8 5 - 40 mg/dL [facility] CONVERSIONS HDL Cholesterol 58 40 - 80 mg/dL [facility]VERSIONS LDL Cholesterol 70 0 - 100 mg/dL PH[facility] CONVERSIONS Cholesterol Non-HDL 78 0 - 130 mg/dl PHCT CONVERSIONS CHOL/HDL Ratio 2.4 PHCT CONVERSIONS 01/01/2019 10:4 2 AM EDT Narrative PHCT CONVERSIONS - 01/01/2019 7:24 PM EDT FASTING: YES Testing Performed at: [email or web address], [address] [place] [address], , Corporate Communications Specialist: Madelin Shi MD CL#[id number] 8:02AM by Smith Pryor: ??Labs are all within normal limits- infectious screening is negative. us Smith Pryor MD LABORATORY Final Result Performing Organization Address [facility] Co de Phone Number PHCT CONVERSIONS * EKG (04/21/2017 8:00 AM EST) Narrative 04/21/2017 8:00 AM EST Ordered by an unspecified provider. us Unknown Provider CARDIOVASCULAR-NO INBASKET RTG Final Result * COLONOSCOPY (02/20/2016 12:00 AM EST) Narrative 02/20/2016 12:00 AM EST Ordered by an unspecified provider. Unknown Provider PROCEDURES Final Result from Last 3 Months or Most Recently Relevant to Health Maintenance Care Teams Superintendent Transmission Relationship Specialty Start Date End Date Smith Pryor MD [address] [place] [address] [phone] PCP - General 10/14/22 Smith Pryor MD [address] [place] [address] [id number] PCP - Backup PCP Internal Medicine 04/09/23
== END 2024-07-23 11:08 | disposition home or self-care (01) ==
LOC: HO.HUSH 09:33
PROVIDERS: Visit Provider Urology
DX: Z13.9 Encounter for screening, unspecified (principal)